=== PATIENT | female | born 1990 | race Caucasian/White ===

== ENCOUNTER → 2016-12-30 | Outpatient (CLI) | payer MEDICAID | LOC: FIMAGING 11:08 | PROVIDERS: ATTEND Registered Nurse | DX: R19.8 Other specified symptoms and signs involving the digestive system and abdomen (principal); R10.9 Unspecified abdominal pain | CPT/HCPCS: 76705-PO ==

== ENCOUNTER 2017-07-07 21:28 | Emergency (ER) | payer MEDICAID ==
[2017-07-07 21:56] VITALS: BP 146/91; RESP 18; TEMP 98.4
[2017-07-07] MEDS ORDERED: fentaNYL 100 MCG/2 ML INJ IVP ONE (22:00)
[2017-07-07] MEDS ORDERED: NS 1,000 ML IV ONE (22:00)
--- NOTE | 2017-07-07 22:02 | EDPHY ---
H & P Stated Complaint: Bilateral flank pain, gallbladder issues since 1999hou. Time Seen by Provider: 07/07/17 21:50 HPI/ROS: CHIEF COMPLAINT: Right flank pain, vomiting HISTORY OF PRESENT ILLNESS: 18-year-old female reports that she developed an abrupt onset of right flank pain with radiation across her back as well as around to the right lower quadrant and suprapubic region at 8:00 p.m.. Patient then developed vomiting. She denies a fever. She denies feeling poorly earlier today. No prior history of kidney stones. No complaints of dysuria or hematuria recently. Patient does state that her urine has been bright orange recently. She tells me she has a "long history "of gallbladder problems although she has had no ultrasound in December of this year demonstrating no gallstones. Patient denies chest pain or shortness of breath. She denies diarrhea. No urinary complaints other than as mentioned above. No headache or lightheadedness. Regarding her gallbladder problems, patient states that she has oily stools, nearly constant right upper quadrant discomfort, and bright yellow urine. She has had these symptoms for many months. She reports the seemed to be improved when she avoids fatty foods. REVIEW OF SYSTEMS: Aside from elements discussed in the HPI, a comprehensive 10-point review of systems was reviewed and is negative. PAST MEDICAL HISTORY: As above, possible gallbladder problems. Of note, patient is nursing her 2-year old daughter. SOCIAL HISTORY: Alcohol intake tonight. Nonsmoker. VITAL SIGNS Reviewed by me. GENERAL: Well-developed, well-nourished, very uncomfortable on arrival. HEENT: Atraumatic. Eyes: No icterus, no injection. Mouth: Dry lips, slightly dry mucous membranes. No erythema or lesions. Neck: supple with no adenopathy. LUNGS: Clear to auscultation bilaterally, no wheezes, rhonchi or rales. CARDIAC: Regular rate and rhythm, no rubs, murmurs or gallops. ABDOMEN: Soft, mild discomfort in the right upper quadrant. Nondistended. Reports suprapubic discomfort but no tenderness to examination. BACK: Right CVA tenderness. EXTREMITIES: No trauma. No edema. Range of motion is normal throughout. NEURO: Alert and oriented, grossly nonfocal. SKIN: Warm and dry, no rash. PSYCHIATRIC: Normal mentation, no agitation. - Personal History LMP (Females 10-55): Irregular Current Tetanus/Diphtheria Vaccine: Yes Current Tetanus Diphtheria and Acellular Pertussis (TDAP): Yes Tetanus Vaccine Date: 06/25 - Medical/Surgical History Hx Asthma: No Hx Chronic Respiratory Disease: No Hx Diabetes: No Hx Cardiac Disease: No Hx Renal Disease: No Hx Cirrhosis: No Hx Alcoholism: No Hx HIV/AIDS: No Hx Splenectomy or Spleen Trauma: No Other PMH: Gallbladder issues, childhood asthma. - Social History Smoking Status: Never smoked Constitutional: Initial Vital Signs Temperature (C) 36.9 C 07/07/17 21:54 Heart Rate 80 07/07/17 21:54 Respiratory Rate 18 07/07/17 21:54 Blood Pressure 146/91 H 07/07/17 21:54 O2 Sat (%) 98 07/07/17 21:54 O2 Delivery Mode Room Air Allergies/Adverse Reactions: No Known Allergies Allergy (Verified 07/07/17 21:56) Home Medications: Medication Instructions Recorded NK [No Known Home Meds] 07/07/17 Medical Decision Making - Diagnostics Imaging Results: Imaging Impressions Abdomen/Pelvis CT 07/07/17 22:01 Impression: 1. No nephrolithiasis or hydronephrosis. 2. No evidence of appendicitis. 3. Mild constipation without bowel obstruction. Attention: This CT examination is specifically designed to evaluate patients who are clinically suspected of having acute obstructive uropathy. This examination does not use radiographic contrast, and as such, provides only a limited evaluation of the abdomen, pelvis and retroperitoneum. If there is further clinical suspicion for pathological conditions other than obstructive uropathy, a complete CT evaluation of the abdomen and pelvis utilizing intravenous, oral, and rectal contrast should be considered. Findings and recommendations discussed with Emergency Department physician, Luanne Zurita MD at 22:44 hour, 07/07/2017. Final report concurs with initial preliminary interpretation. ED Course/Re-evaluation: 26-year-old female presents to the emergency department with a relatively abrupt onset of right lateral abdominal pain, right flank pain, with some radiation into the lower abdomen and vomiting. IV fluids were given. Patient received fentanyl as well as Zofran. Laboratory evaluation demonstrates a normal white count, normal liver function tests including lipase, not . Patient's urinalysis has 10-15 RBCs and 3 -5 WBCs per high-power field. CT scan does not demonstrate a kidney stone. Patient has no evidence of pyelonephritis, hydronephrosis, or appendicitis. I discussed the CT results and laboratory results the patient. She reports feeling improved although she does have persistent discomfort in her right upper quadrant which she states has been present since December. Exact cause of the patient's symptom complex is somewhat unclear. No evidence of appendicitis, kidney stone, or pyelonephritis. Pain may have been related to a passed kidney stone, bowel spasm related constipation, biliary dysfunction. Patient was instructed to follow up with [facility] as soon as possible for further evaluation. She was discharged with prepack of hydrocodone to use as needed for severe discomfort, as well as Zofran for vomiting and nausea. Differential Diagnosis: Differential diagnosis for the patient's symptom complex was considered including but not limited to kidney stone, pyelonephritis, cholecystitis, gastritis, biliary dysfunction, peptic ulcers disease, and pancreatitis. - Data Points Laboratory Results: Laboratory Results 07/07/17 22:00 07/07/17 22:00 07/07/17 07/07/17 07/07/17 22:01 22:00 22:00 WBC RBC Hgb Hct MCV MCH MCHC RDW Plt Count MPV Neut % (Auto) Lymph % (Auto) [place] % (Auto) Eos % (Auto) Baso % (Auto) Nucleat RBC Rel Count Absolute Neuts (auto) Absolute Lymphs (auto) Absolute Monos (auto) Absolute Eos (auto) Absolute Basos (auto) Absolute Nucleated RBC Immature Gran % Immature Gran # Sodium 142 mEq/L mEq/L (134-144) Potassium 3.9 mEq/L mEq/L (3.5-5.2) Chloride 103 mEq/L mEq/L (97-110) Carbon Dioxide 24 mEq/l mEq/l (22-31) Anion Gap 15 mEq/L mEq/L (8-16) BUN 15 mg/dL mg/dL (7-23) Creatinine 0.8 mg/dL mg/dL (0.6-1.0) Estimated GFR > 60 Glucose 104 mg/dL H mg/dL (70-100) Calcium 9.7 mg/dL mg/dL (8.5-10.4) Total Bilirubin 0.2 mg/dL mg/dL (0.1-1.4) Conjugated Bilirubin 0.0 mg/dL mg/dL (0.0-0.5) Unconjugated Bilirubin 0.2 mg/dL mg/dL (0.0-1.1) AST 25 IU/L IU/L (14-46) ALT 31 IU/L IU/L (9-52) Alkaline Phosphatase 49 IU/L IU/L (38-126) Total Protein 7.7 g/dL g/dL (6.3-8.2) Albumin 4.6 g/dL g/dL (3.5-5.0) Lipase 59 IU/L IU/L (23-300) Beta HCG, Qual NEGATIVE Urine Color YELLOW Urine Appearance CLEAR Urine pH 6.5 (5.0-7.5) Ur Specific [place] 1.015 (1.002-1.030) Urine Protein NEGATIVE (NEGATIVE) Urine Ketones NEGATIVE (NEGATIVE) Urine Blood 3+ H (NEGATIVE) Urine Nitrate NEGATIVE (NEGATIVE) Urine Bilirubin NEGATIVE (NEGATIVE) Urine Urobilinogen 0.2 EU EU (0.2-1.0) Ur Leukocyte Esterase TRACE H (NEGATIVE) Urine RBC 10-15 /hpf H /hpf (0-3) Urine WBC 3-5 /hpf H /hpf (0-3) Ur Epithelial Cells TRACE /lpf /lpf (NONE-1+) Urine Bacteria TRACE /hpf H /hpf (NONE SEEN) Urine Mucus 2+ /lpf H /lpf (NONE-1+) Urine Glucose NEGATIVE (NEGATIVE) Ethyl Alcohol 74 mg/dL H mg/dL (0-10) 07/07/17 22:00 WBC 7.64 10^3/uL 10^3/uL (3.80-9.50) RBC 4.32 10^6/uL 10^6/uL (4.18-5.33) Hgb 13.8 g/dL g/dL (12.6-16.3) Hct 39.4 % % (38.0-47.0) MCV 91.2 fL fL (81.5-99.8) MCH 31.9 pg pg (27.9-34.1) MCHC 35.0 g/dL g/dL (32.4-36.7) RDW 11.9 % % (11.5-15.2) Plt Count 207 10^3/uL 10^3/uL (150-400) MPV 10.7 fL fL (8.7-11.7) Neut % (Auto) 63.5 % % (39.3-74.2) Lymph % (Auto) 25.5 % % (15.0-45.0) [place] % (Auto) 8.4 % % (4.5-13.0) Eos % (Auto) 2.1 % % (0.6-7.6) Baso % (Auto) 0.4 % % (0.3-1.7) Nucleat RBC Rel Count 0.0 % % (0.0-0.2) Absolute Neuts (auto) 4.85 10^3/uL 10^3/uL (1.70-6.50) Absolute Lymphs (auto) 1.95 10^3/uL 10^3/uL (1.00-3.00) Absolute Monos (auto) 0.64 10^3/uL 10^3/uL (0.30-0.80) Absolute Eos (auto) 0.16 10^3/uL 10^3/uL (0.03-0.40) Absolute Basos (auto) 0.03 10^3/uL 10^3/uL (0.02-0.10) Absolute Nucleated RBC 0.00 10^3/uL 10^3/uL (0-0.01) Immature Gran % 0.1 % % (0.0-1.1) Immature Gran # 0.01 10^3/uL 10^3/uL (0.00-0.10) Sodium Potassium Chloride Carbon Dioxide Anion Gap BUN Creatinine Estimated GFR Glucose Calcium Total Bilirubin Conjugated Bilirubin Unconjugated Bilirubin AST ALT Alkaline Phosphatase Total Protein Albumin Lipase Beta HCG, Qual Urine Color Urine Appearance Urine pH Ur Specific [place] Urine Protein Urine Ketones Urine Blood Urine Nitrate Urine Bilirubin Urine Urobilinogen Ur Leukocyte Esterase Urine RBC Urine WBC Ur Epithelial Cells Urine Bacteria Urine Mucus Urine Glucose Ethyl Alcohol Medications Given: Discontinued Medications Fentanyl (Sublimaze) 50 mcg IVP EDNOW ONE Stop: 07/07/17 22:01 Last Admin: 07/07/17 22:09 Dose: 50 mcg Sodium Chloride (Ns) 1,000 mls @ 0 mls/hr IV EDNOW ONE; Wide Open PRN Reason: Protocol Stop: 07/07/17 22:01 Last Admin: 07/07/17 22:10 Dose: 1,000 mls Ketorolac Tromethamine (Toradol) 30 mg IVP EDNOW ONE Stop: 07/07/17 22:44 Last Admin: 07/07/17 22:53 Dose: 30 mg Departure - Departure Disposition: Home, Routine, Self-Care Clinical Impression: Possible biliary dysfunction Abdominal pain Qualifiers: Abdominal location: right upper quadrant Qualified Code(s): R10.11 - Right upper quadrant pain Constipation Qualifiers: Constipation type: unspecified constipation type Qualified Code(s): K59.00 - Constipation, unspecified Condition: Good Instructions: Acute Abdominal Pain (ED), Flank Pain (ED) Additional Instructions: For your abdominal pain and flank pain, you been given a prepack of hydrocodone. Please use this sparingly as needed for severe discomfort. It may cause constipation. There is some constipation visualized on your CT scan. I encourage you to begin taking a stool softener, and drink plenty of fluids. You been given a prepack of Zofran. Please use this as needed for ongoing nausea and vomiting. I recommend that you follow up with your primary care physician for further evaluation. Your symptoms may be related to biliary dysfunction and further testing may be needed. If you develop a fever, recurrent vomiting, worsening pain despite the above treatment, diarrhea, or other concerns, please return to the emergency department or seek care urgently. There is some evidence that the urine may contain infection. You been started on Keflex. The urine cultures will be available in 36-48 hours. If there is no definitive infection, you may stop taking the antibiotics. You may call to obtain the culture results in 2 days. Referrals: NONE *PRIMARY CARE P,. [Primary Care Provider] - As per Instructions
[2017-07-07 22:09] LABS: % IMMATURE GRANULYOCYTES 0.1 % (0.0-1.1); ABSOLUTE IMMATURE GRANULOCYTES 0.01 10^3/uL (0.00-0.10); ADD DIFF? NO; ADD MORPH? NO; ADD SCAN? NO; ATYPICAL LYMPHOCYTE FLAG 0 (0-99); FRAGMENT RBC FLAG 0 (0-99); HEMATOCRIT 39.4 % (38.0-47.0); HEMOGLOBIN 13.8 g/dL (12.6-16.3); LEFT SHIFT FLG 0 (0-99); LIPEMIA HEMOLYSIS FLAG 90 (0-99); MEAN CELL HEMOGLOBIN 31.9 pg (27.9-34.1); MEAN CELL VOLUME 91.2 fL (81.5-99.8); MEAN PLATELET VOLUME 10.7 fL (8.7-11.7); PLATELET CLUMPS FLAG 0 (0-99); PLATELET COUNT 207 10^3/uL (150-400); RED BLOOD CELL COUNT 4.32 10^6/uL (4.18-5.33); RED CELL DISTRIBUTION WIDTH 11.9 % (11.5-15.2)
[2017-07-07 22:12] LABS: COLOR YELLOW; LEUKOCYTE ESTERASE,URINE TRACE (NEGATIVE); NITRITE,URINE NEGATIVE (NEGATIVE); PH,URINE 6.5 (5.0-7.5)
[2017-07-07 22:21] LABS: ALANINE AMINOTRANSFERASE 31 IU/L (9-52); ALBUMIN 4.6 g/dL (3.5-5.0); ALKALINE PHOSPHATASE 49 IU/L (38-126); ANION GAP 15 mEq/L (8-16); ASPARTATE AMINOTRANSFERASE 25 IU/L (14-46); BILIRUBIN,TOTAL 0.2 mg/dL (0.1-1.4); BILIRUBIN-UNCONJUGATED 0.2 mg/dL (0.0-1.1); CALCIUM 9.7 mg/dL (8.5-10.4); CARBON DIOXIDE 24 mEq/l (22-31); CHLORIDE 103 mEq/L (97-110); CREATININE 0.8 mg/dL (0.6-1.0); ETHANOL SERUM 74 mg/dL (0-10); GLOMERULAR FILTRATION RATE > 60; GLUCOSE 104 mg/dL (70-100); POTASSIUM 3.9 mEq/L (3.5-5.2); SODIUM 142 mEq/L (134-144); TOTAL PROTEIN 7.7 g/dL (6.3-8.2)
[2017-07-07 22:25] LABS: BACTERIA TRACE /hpf (NONE SEEN); MUCUS 2+ /lpf (NONE-1+)
[2017-07-07] MEDS ORDERED: KETOROLAC 30 MG/1 ML SDV IVP ONE (22:43)
[2017-07-07] MEDS ORDERED: ONDANSETRON 4MG PREPACK#2 BTL TAKEHOME ONE (23:07)
[2017-07-07] MEDS ORDERED: CEPHALEXIN 500MG PREPACK#4 BTL TAKEHOME ONE (23:07)
[2017-07-07] MEDS ORDERED: HYDROCOD/APAP 5/325 PREPACK#6 BTL TAKEHOME ONE (23:08)
[2017-07-07 23:32] VITALS: PULSE 79; O2SAT 93
== END 2017-07-07 23:30 | disposition home or self-care (01) ==
LOC: CED 21:28
DX: K59.00 Constipation, unspecified (principal); J45.909 Unspecified asthma, uncomplicated; E86.9 Volume depletion, unspecified
CPT/HCPCS: 74176-PO; 80048-PO; 80076-PO; 81003-PO; 81015-PO; 83690-PO; 84703-PO; 85025-PO; 96374; G0480; J1885; J3010

== ENCOUNTER → 2017-09-29 | Outpatient (CLI) | payer MEDICAID | LOC: CIMAGING 09:49 | PROVIDERS: ATTEND Physician Assistant | DX: R07.81 Pleurodynia (principal); R91.8 Other nonspecific abnormal finding of lung field; J45.909 Unspecified asthma, uncomplicated; F17.200 Nicotine dependence, unspecified, uncomplicated | CPT/HCPCS: 71046-PO; 71100-PO ==